=== PATIENT | female | born 1980 | race Caucasian/White ===

== ENCOUNTER 2018-08-05 14:54 | Emergency (ER) | payer OTHER ==
[~2018-08-05] VITALS: Ht 165.1 cm; Wt 70.9 kg
[2018-08-05] MEDS ORDERED: LAMICTAL5 MG (15:03)
[2018-08-05] MEDS ORDERED: SILVADENE20 GM TOP (16:44)
== END 2018-08-05 16:54 | disposition home or self-care (01) ==
LOC: ER 14:54
DX: L55.1 Sunburn of second degree (principal); L55.0 Sunburn of first degree; L56.8 Other specified acute skin changes due to ultraviolet radiation; X32.XXXA Exposure to sunlight, initial encounter; Y93.89 Activity, other specified; Y92.89 Other specified places as the place of occurrence of the external cause; Y99.8 Other external cause status